=== PATIENT | female | born 1960 | race Caucasian/White ===

== ENCOUNTER 2021-01-16 14:33 | Outpatient (CLI) | payer BC | END 2021-01-16 14:34 | disposition home or self-care (01) | LOC: BICRAD 14:33 | PROVIDERS: ATTEND Radiology Radiation Oncology | DX: C79.51 Secondary malignant neoplasm of bone (principal); C34.11 Malignant neoplasm of upper lobe, right bronchus or lung ==

== ENCOUNTER 2021-01-18 08:28 | Day surgery (SDC) | payer BC ==
[2021-01-16 13:42] VITALS: BMI 23.1
[2021-01-18 08:54] LABS: Prothrombin Time 13.3 sec (12.0-14.7)
[2021-01-18 08:55] LABS: PTT 30.2 sec (22.9-36.1)
[2021-01-18 09:13] VITALS: BP 160/86; TEMP 98.4
[2021-01-18] MEDS ORDERED: Ondansetron PF 4 MG/2 ML Vial IVP PRN (14:25)
[2021-01-18] MEDS ORDERED: HYDROcodone/Acetaminophen 5/325 mg Tablet PO PRN ×2 (14:25)
[2021-01-18] MEDS ORDERED: Morphine 4 MG/ML VIAL SLOW IVP PRN (14:33)
[2021-01-18] MEDS ORDERED: Ketorolac Tromethamine 30 MG/ML VIAL IVP PRN (14:33)
== END 2021-01-18 14:45 | disposition short-term general hospital (02) ==
LOC: CT 08:28
PROVIDERS: ATTEND Internal Medicine Hematology & Oncology
PROC: 0BBC3ZX Excision of Right Upper Lung Lobe, Percutaneous Approach, Diagnostic (ICD-10-PCS; principal; 2021-01-18)
PROC: 0W9930Z Drainage of Right Pleural Cavity with Drainage Device, Percutaneous Approach (ICD-10-PCS; principal; 2021-01-18)
DX: J93.9 Pneumothorax, unspecified (principal); C34.11 Malignant neoplasm of upper lobe, right bronchus or lung; C79.51 Secondary malignant neoplasm of bone
CPT/HCPCS: 32408; 71045; 71250; 77002; 85610; 85730

== ENCOUNTER 2021-03-13 11:57 | Outpatient (CLI) | payer BC ==
[2021-03-13 12:47] LABS: Hemoglobin 7.3 g/dL (12.0-15.5); Mean Corpuscular Volume 63.1 fl (81.6-98.3); Mean Platelet Volume 9.9 fl (7.4-10.4); Platelet Count 215 10x3/uL (150-450); RBC Distribution Width 17.1 % (11.5-14.5); Red Blood Cell (RBC) Count 3.85 10x6/uL (3.90-5.03); White Blood Cell (WBC) Count 1.3 10x3/uL (3.5-10.5)
[2021-03-13 13:06] LABS: Anion Gap 15 mmol/L (10-20); BUN (Urea Nitrogen) 18 mg/dL (9.8-20.1); Calc. Creatinine Clearance 0 mL/min (70-130); Calcium 9.4 mg/dL (7.8-10.44); Carbon Dioxide 24 mmol/L (22-29); Chloride 104 mmol/L (98-107); Glucose 139 mg/dL (70-105); Potassium 3.7 mmol/L (3.5-5.1); Sodium 139 mmol/L (136-145)
[2021-03-13 13:18] LABS: MDiff Complete? YES; Manual Diff?? YES
[2021-03-13 13:25] LABS: Band 2 % (5-11); Eosinophils 2 % (0-10); Lymphocytes 37 % (21-51); Monocytes 16 % (0-10); Neutrophil 29 % (42-75); Nucleated RBC 2 % (0); Reactive Lymphocytes 12 % (0-10)
[2021-03-13 13:26] LABS: Platelet Morphology Comment Appears Adequate
[2021-03-13 13:28] LABS: Anisocytosis SLIGHT = 6-15 cells (100X) (0-5/hpf); Hypochromia SLIGHT = 6-15 cells (100X) (0-5/hpf); Macrocytosis SLIGHT = 6-15 cells (100X) (0-5/hpf); Microcytosis SLIGHT = 6-15 cells (100X) (0-5/hpf); Target Cells SLIGHT = 2-5 cells (100X) (0-1/hpf)
[2021-03-13 13:29] LABS: Elliptocytes SLIGHT = 2-5 cells (100X) (0-1/hpf); Schistocytes SLIGHT = 2-5 cells (100X) (0-1/hpf)
[2021-03-13 13:31] LABS: Tear Drops SLIGHT = 2-5 cells (100X) (0-1/hpf)
[2021-03-14 01:46] LABS: SARS-CoV-2 PCR by NAA Not Detected (NotDetected)
== END 2021-03-13 11:58 | disposition home or self-care (01) ==
LOC: LABBT 11:57
PROVIDERS: ATTEND Specialist
DX: Z01.818 Encounter for other preprocedural examination (principal); C34.11 Malignant neoplasm of upper lobe, right bronchus or lung; Z20.822 Contact with and (suspected) exposure to COVID-19
CPT/HCPCS: 80048; 85025; 93005; 93010; U0003; U0005

== ENCOUNTER 2021-03-18 10:29 | Day surgery (SDC) | payer BC ==
[2021-03-18] MEDS ORDERED: Ketorolac Tromethamine 30 MG/ML VIAL ONE ×2 (10:53→11:38)
[2021-03-18] MEDS ORDERED: Acetaminophen 500 MG TAB ONE (10:53)
[2021-03-18] MEDS ORDERED: PROPOFOL 0 ML ONE (11:04)
[2021-03-18] MEDS ORDERED: Lidocaine 1% w/Epinephrine 1:100K 20 ML VIAL ONE (11:48)
[2021-03-18] MEDS ORDERED: Bupivacaine 0.25% HCL 30 ML VIAL ONE (11:48)
[2021-03-18] MEDS ORDERED: EPINEPHrine 1 MG/ML AMP ONE (11:48)
[2021-03-18] MEDS ORDERED: Propofol 500 MG/50 ML VIAL ONE (12:14)
[2021-03-18] MEDS ORDERED: Midazolam HCl 2 mg/2 ml Vial ONE (12:47)
[2021-03-18] MEDS ORDERED: Lidocaine 1% PF 5 ML VIAL ONE (13:03)
[2021-03-18] MEDS ORDERED: Ondansetron PF 4 MG/2 ML Vial ONE (13:03)
== END 2021-03-18 14:30 | disposition home or self-care (01) ==
LOC: SDC 10:29
PROVIDERS: ATTEND Specialist
PROC: 02HV33Z Insertion of Infusion Device into Superior Vena Cava, Percutaneous Approach (ICD-10-PCS; principal; 2021-03-18)
DX: C34.11 Malignant neoplasm of upper lobe, right bronchus or lung (principal); C79.9 Secondary malignant neoplasm of unspecified site; Z90.710 Acquired absence of both cervix and uterus; Z98.890 Other specified postprocedural states; Z79.899 Other long term (current) drug therapy
CPT/HCPCS: 71045; C1788; J0171; J1642; J1885; J2250; J2405; J2704; S0020

== ENCOUNTER 2021-06-25 09:08 | Outpatient (CLI) | payer BC | END 2021-06-25 09:09 | disposition home or self-care (01) | LOC: PET 09:08 | PROVIDERS: ATTEND Internal Medicine Hematology & Oncology | DX: C34.11 Malignant neoplasm of upper lobe, right bronchus or lung (principal); C79.51 Secondary malignant neoplasm of bone | CPT/HCPCS: 78815; A9552 ==

== ENCOUNTER 2021-11-12 09:30 | Outpatient (CLI) | payer BC | END 2021-11-12 09:31 | disposition home or self-care (01) | LOC: PET 09:30 | PROVIDERS: ATTEND Internal Medicine Hematology & Oncology | DX: C34.11 Malignant neoplasm of upper lobe, right bronchus or lung (principal); C79.51 Secondary malignant neoplasm of bone | CPT/HCPCS: 78815; A9552 ==

== ENCOUNTER 2022-03-18 08:45 | Outpatient (CLI) | payer BC | END 2022-03-18 08:46 | disposition home or self-care (01) | LOC: PET 08:45 | PROVIDERS: ATTEND Internal Medicine Hematology & Oncology | DX: C34.11 Malignant neoplasm of upper lobe, right bronchus or lung (principal); C79.51 Secondary malignant neoplasm of bone | CPT/HCPCS: 78815; A9552 ==

== ENCOUNTER 2022-09-30 11:00 | Outpatient (CLI) | payer BC | END 2022-09-30 11:01 | disposition home or self-care (01) | LOC: PET 11:00 | PROVIDERS: ATTEND Internal Medicine Hematology & Oncology | DX: C34.11 Malignant neoplasm of upper lobe, right bronchus or lung (principal); C79.51 Secondary malignant neoplasm of bone | CPT/HCPCS: 78815; A9552 ==

== ENCOUNTER 2023-04-14 10:15 | Outpatient (CLI) | payer BC | END 2023-04-14 10:16 | LOC: PET 10:15 | PROVIDERS: ATTEND Internal Medicine Hematology & Oncology | DX: C34.11 Malignant neoplasm of upper lobe, right bronchus or lung (principal); C79.51 Secondary malignant neoplasm of bone | CPT/HCPCS: 78815; A9552 ==

== ENCOUNTER 2023-07-23 08:45 | Outpatient (CLI) | payer BC | END 2023-07-23 08:46 | LOC: PET 08:45 | PROVIDERS: ATTEND Internal Medicine Hematology & Oncology | DX: C34.11 Malignant neoplasm of upper lobe, right bronchus or lung (principal); C79.51 Secondary malignant neoplasm of bone; R91.8 Other nonspecific abnormal finding of lung field | CPT/HCPCS: 78815; A9552 ==

== ENCOUNTER 2023-07-23 10:32 | Outpatient (CLI) | payer BC | END 2023-07-23 10:33 | disposition home or self-care (01) | LOC: MRI 10:32 | PROVIDERS: ATTEND Internal Medicine Hematology & Oncology | DX: C79.51 Secondary malignant neoplasm of bone (principal); C34.11 Malignant neoplasm of upper lobe, right bronchus or lung | CPT/HCPCS: 70553 ==

== ENCOUNTER 2023-08-04 08:43 | Outpatient (CLI) | payer BC | END 2023-08-04 08:44 | disposition home or self-care (01) | LOC: BICMRI 08:43 | PROVIDERS: ATTEND Radiology Radiation Oncology | DX: C34.90 Malignant neoplasm of unspecified part of unspecified bronchus or lung (principal); C79.31 Secondary malignant neoplasm of brain; C79.32 Secondary malignant neoplasm of cerebral meninges; G96.198 Other disorders of meninges, not elsewhere classified; M84.48XA Pathological fracture, other site, initial encounter for fracture; M48.04 Spinal stenosis, thoracic region | CPT/HCPCS: 72156; 72157; 72158; 82565 ==

== ENCOUNTER 2023-08-08 13:08 | Inpatient (IN) | payer BC ==
[2023-08-08] MEDS ORDERED: LORazepam 2 MG/ML SYR.(CARPUJECT) ONE ×3 (13:19→17:41)
[2023-08-08 13:38] LABS: #Monocytes 0.7 thou/uL (0.11-0.59); #Neutrophils 4.5 thou/uL (1.40-6.50); %Basophils 0.2 % (0.0-1.0); %Lymphocytes 18.9 % (21.0-51.0); %Monocytes 10.7 % (0.0-10.0); %Neutrophils 69.9 % (42.0-75.0); Hemoglobin 7.4 g/dL (12.0-16.0); Mean Corpuscular HGB CONC 32.2 g/dL (32.0-36.0); Mean Corpuscular Hemoglobin 20.1 pg (27.0-31.0); Mean Corpuscular Volume 62.3 fl (78.0-98.0); Mean Platelet Volume 9.6 fL (7.4-10.4); Platelet Count 288 10x3/uL (130-400); RBC Distribution Width 15.4 % (11.5-14.5); Red Blood Cell (RBC) Count 3.69 mill/uL (4.20-5.40); White Blood Cell (WBC) Count 6.5 10x3/uL (4.8-10.8)
[2023-08-08 13:55] LABS: Acetaminophen Less than 10 mcg/mL (10.0-30.0); Alcohol Less than 10.0 mg/dL (Less than 10); Salicylate Less than 8.0 mg/dL (15.0-30.0)
[2023-08-08 13:57] LABS: ALT (SGPT) 11 U/L (8-55); AST (SGOT) 18 U/L (5-34); Albumin 4.7 g/dL (3.4-4.8); Alkaline Phosphatase 64 U/L (40-110); Anion Gap 17 mmol/L (10-20); BUN (Urea Nitrogen) 14 mg/dL (9.8-20.1); Bilirubin, Total 0.4 mg/dL (0.2-1.2); Calc. Creatinine Clearance 0 mL/min (70-130); Calcium 8.9 mg/dL (7.8-10.44); Carbon Dioxide 19 mmol/L (23-31); Chloride 103 mmol/L (98-107); Estimated GFR 93; Globulin 2.3 g/dL (2.4-3.5); Glucose 116 mg/dL (80-115); Potassium 4.2 mmol/L (3.5-5.1); Sodium 135 mmol/L (136-145)
[2023-08-08 13:59] LABS: Troponin I Less than 0.010 ng/mL (< 0.028)
[2023-08-08 14:04] LABS: Anisocytosis SLIGHT = 6-15 cells HPF (0-5); CellaVision Operator ID LAB.MJL; Hypochromia SLIGHT = 6-15 cells HPF (0-5); Microcytosis SLIGHT = 6-15 cells HPF (0-5); Ovalocytes SLIGHT = 2-5 cells HPF (0-1); Platelet Adequacy Comment Platelets Normal; Poikilocytosis SLIGHT = 6-15 cells HPF (0-5); Polychromasia SLIGHT = 2-3 cells HPF (0-2); Schistocytes SLIGHT = 2-5 cells HPF (0-1); Target Cells SLIGHT = 2-5 cells HPF (0-1); Tear Drops SLIGHT = 2-5 cells HPF (0-1)
[2023-08-08] MEDS ORDERED: Haloperidol Lactate 5 MG/ML VIAL ONE (14:21)
[2023-08-08] MEDS ORDERED: Dexamethasone 10 MG/ML VIAL ONE (14:29)
[2023-08-08 15:41] LABS: Bacteria/HPF None Seen HPF (None Seen); Bilirubin Negative (Negative); Blood, Urine Negative (Negative); CAUTI Indications for Culture Alt mental st,lethar; Clarity Clear (Clear); Glucose, Urine (Dipstick) Normal (Negative); Ketone, Urine 150 mg/dL (Negative); Leukocyte Negative Leu/uL (Negative); Nitrite Negative (Negative); Protein, Urine (Dipstick) 20 mg/dL (Neg-Trace); RBC/HPF 0-3 HPF (0-3); Specific Gravity, Urine 1.023 (1.002-1.036); Squamous Epithelial None Seen HPF (0-3); Urobilinogen Normal mg/dL (Less than 2); WBC/HPF 0-3 HPF (0-3); pH, Urine 5.5 (5.0-9.0)
[2023-08-08 15:42] LABS: Urine Culture Reflex No No
[2023-08-08 15:50] LABS: Amphetamine Not Detected (NotDetected); Barbiturates Screen Not Detected (NotDetected); Benzodiazepine Screen Detected (NotDetected); Cocaine Metabolite Screen Not Detected (NotDetected); Methadone Not Detected (NotDetected); Methamphetamine Not Detected (NotDetected); Opiate Screen Detected (NotDetected); Oxycodone Screen Not Detected (NotDetected); Phencyclidine (PCP) Not Detected (NotDetected); THC/Cannabinoid Screen Detected (NotDetected); Tricyclic Screen Not Detected (NotDetected)
[2023-08-08] MEDS ORDERED: Acetaminophen 325 MG TAB PO PRN (16:33)
[2023-08-08 17:45] LABS: Iron 12 ug/dL (50-170); Iron Binding Capacity, Total 245 mcg/dL (265-497)
[2023-08-08 18:20] VITALS: BMI 17.8
[2023-08-08] MEDS: Sodium Chloride 0.9% 1,000 ML IV SCH (18:31)
[2023-08-08] MEDS: Acetaminophen 650 MG Suppository PR PRN (18:54)
[2023-08-08] MEDS: Famotidine/PF 20 mg/2ml Vial SLOW IVP SCH (20:53)
[2023-08-08] MEDS: Cefepime 1 GM in Sodium Chloride 0.9% 100 ML IVPB SCH (21:00)
[2023-08-08] MEDS: Vancomycin 1 GM in Premix 1 BAG IVPB SCH (23:50)
[2023-08-09] MEDS: Ketorolac Tromethamine 30 MG (1 mL) VIAL IVP SCH (06:39)
[2023-08-09 08:07] LABS: #Monocytes 1.1 thou/uL (0.11-0.59); %Basophils 0.1 % (0.0-1.0); %Lymphocytes 16.2 % (21.0-51.0); %Monocytes 12.8 % (0.0-10.0); %Neutrophils 70.5 % (42.0-75.0); Hematocrit 23.4 % (36.0-47.0); Hemoglobin 7.5 g/dL (12.0-16.0); Mean Corpuscular HGB CONC 32.1 g/dL (32.0-36.0); Mean Corpuscular Hemoglobin 20.3 pg (27.0-31.0); Mean Corpuscular Volume 63.2 fl (78.0-98.0); Mean Platelet Volume 10.4 fL (7.4-10.4); Platelet Count 331 10x3/uL (130-400); RBC Distribution Width 15.9 % (11.5-14.5); White Blood Cell (WBC) Count 8.6 10x3/uL (4.8-10.8)
[2023-08-09] MEDS ORDERED: HYDROcodone/Acetaminophen 5/325 mg Tablet PO PRN (08:22)
[2023-08-09] MEDS: Haloperidol Lactate 5 MG/ML VIAL IM PRN (08:37)
[2023-08-09] MEDS: Memantine 10 MG TAB PO SCH (10:38)
[2023-08-09] MEDS: Enoxaparin 40 MG (0.4 mL) SYRINGE SC SCH (13:21)
[2023-08-09] MEDS: Dexamethasone 4 MG TAB PO SCH (13:21)
[2023-08-09] MEDS: Morphine 2 MG/ML VIAL SLOW IVP PRN (16:15)
[2023-08-09] MEDS: Dexamethasone 4 mg/ml Vial SLOW IVP SCH (18:19)
[2023-08-09] MEDS: levETIRAcetam 500 MG (5 mL) VIAL SLOW IVP SCH ×2 (18:54→21:49)
[2023-08-09] MEDS: Mirtazapine 15 MG TAB PO SCH (22:00)
[2023-08-09] MEDS: Vancomycin 1 GM in Premix 1 BAG IVPB SCH (23:20)
[2023-08-10 05:44] LABS: #Monocytes 0.3 thou/uL (0.11-0.59); #Neutrophils 5.1 thou/uL (1.40-6.50); %Basophils 0.2 % (0.0-1.0); %Lymphocytes 16.6 % (21.0-51.0); %Monocytes 4.9 % (0.0-10.0); Hematocrit 26.5 % (36.0-47.0); Hemoglobin 8.2 g/dL (12.0-16.0); Mean Corpuscular HGB CONC 30.9 g/dL (32.0-36.0); Mean Corpuscular Hemoglobin 19.6 pg (27.0-31.0); Mean Corpuscular Volume 63.2 fl (78.0-98.0); Mean Platelet Volume 9.8 fL (7.4-10.4); Platelet Count 373 10x3/uL (130-400); RBC Distribution Width 15.9 % (11.5-14.5); Red Blood Cell (RBC) Count 4.19 mill/uL (4.20-5.40); White Blood Cell (WBC) Count 6.6 10x3/uL (4.8-10.8)
[2023-08-10 06:39] LABS: Anion Gap 16 mmol/L (10-20); BUN (Urea Nitrogen) 13 mg/dL (9.8-20.1); Calc. Creatinine Clearance 63 mL/min (70-130); Calcium 9.1 mg/dL (7.8-10.44); Carbon Dioxide 19 mmol/L (23-31); Chloride 107 mmol/L (98-107); Estimated GFR 100; Glucose 140 mg/dL (80-115); Potassium 4.3 mmol/L (3.5-5.1); Sodium 138 mmol/L (136-145)
[2023-08-10] MEDS: Morphine 2 MG/ML VIAL SLOW IVP PRN (11:47)
[2023-08-10] MEDS: Acetaminophen 650 MG Suppository PR SCH (13:16)
[2023-08-10] MEDS ORDERED: Electrolyte Replacement Protocol 1 EACH FS SCH (15:00)
[2023-08-10] MEDS ORDERED: Magnevist 469MG/ML 20 ML VIAL ONE (16:21)
[2023-08-10] MEDS: Ampicillin/Sulbactam 3 GM in Sodium Chloride 0.9% 100 ML IVPB SCH (17:48)
[2023-08-10] MEDS: D5 1/2 NS w/20 mEq KCL 1,000 ML IV SCH (17:49)
[2023-08-10 18:50] LABS: Magnesium 2.5 mg/dL (1.6-2.6)
[2023-08-10 18:51] LABS: Magnesium 2.3 mg/dL (1.6-2.6); Phosphorus 2.5 mg/dL (2.3-4.7)
[2023-08-11 06:11] LABS: INR-International Normal Ratio 1.2; PTT 29.3 sec (22.9-36.1); Prothrombin Time 15.5 sec (12.0-14.7)
[2023-08-11 06:12] LABS: Anion Gap 17 mmol/L (10-20); BUN (Urea Nitrogen) 20 mg/dL (9.8-20.1); Calc. Creatinine Clearance 64 mL/min (70-130); Calcium 8.7 mg/dL (7.8-10.44); Carbon Dioxide 22 mmol/L (23-31); Chloride 105 mmol/L (98-107); Estimated GFR 101; Glucose 150 mg/dL (80-115); Phosphorus 2.2 mg/dL (2.3-4.7); Potassium 4.1 mmol/L (3.5-5.1); Sodium 140 mmol/L (136-145)
[2023-08-11] MEDS ORDERED: Enoxaparin 30 MG (0.3 mL) SYRINGE SC SCH (09:00)
[2023-08-11] MEDS ORDERED: Sodium Bicarbonate 2.5 MEQ/5 ML SDV ONE (09:11)
[2023-08-11] MEDS ORDERED: Lidocaine 1% PF 5 ML VIAL ONE (09:12)
[2023-08-11] MEDS: Lorazepam 2 MG/ML VIAL SLOW IVP PRN ×2 (09:14→19:07)
[2023-08-11] MEDS ORDERED: Thiamine HCl 500 MG in Sodium Chloride 0.9% 250 ML 250 ML IVPB SCH (12:00)
[2023-08-11 12:04] LABS: CSF, Glucose 80 mg/dl (40-70); CSF, Protein 63 mg/dL (15-40)
[2023-08-11 12:15] LABS: CSF Source CSF; Clarity Clear (Clear); Tube # 4
[2023-08-11 12:20] LABS: Cell Count Non Hematic 39 %; Lymphocytes 12 %
[2023-08-11 12:30] LABS: Color Of CSF Supernatant COLORLESS (Colorless); Tube # 2; Unspun CSF Color COLORLESS (Colorless)
[2023-08-11] MEDS: Thiamine HCl 500 MG, Admixture Fee 1 EACH in Sodium Chloride 0.9% 250 ML 250 ML IVPB SCH (12:54)
[2023-08-11 20:25] LABS: Segmented Neutrophils 49 %
[2023-08-12 07:25] LABS: Anion Gap 9 mmol/L (10-20); BUN (Urea Nitrogen) 12 mg/dL (9.8-20.1); Calc. Creatinine Clearance 99 mL/min (70-130); Carbon Dioxide 12 mmol/L (23-31); Chloride 123 mmol/L (98-107); Estimated GFR 112; Glucose 122 mg/dL (80-115); Potassium 2.8 mmol/L (3.5-5.1); Sodium 141 mmol/L (136-145)
[2023-08-12] MEDS: CALCIUM GLUC 1 GM/NS 50 ML 1 GM in Premix 1 BAG IVPB SCH (08:06)
[2023-08-12] MEDS: Potassium Chloride 20 MEQ in Premix 1 BAG IVPB SCH (08:06)
[2023-08-12] MEDS: Enoxaparin 30 MG (0.3 mL) SYRINGE SC SCH (09:00)
[2023-08-12 09:02] LABS: Anion Gap 14 mmol/L (10-20); BUN (Urea Nitrogen) 19 mg/dL (9.8-20.1); Calc. Creatinine Clearance 68 mL/min (70-130); Calcium 8.8 mg/dL (7.8-10.44); Carbon Dioxide 24 mmol/L (23-31); Chloride 100 mmol/L (98-107); Estimated GFR 102; Glucose 169 mg/dL (80-115); Magnesium 2.4 mg/dL (1.6-2.6); Phosphorus 2.1 mg/dL (2.3-4.7); Potassium 4.3 mmol/L (3.5-5.1); Sodium 134 mmol/L (136-145)
[2023-08-12] MEDS: Calcium Gluconate 4.6 MEQ in Sodium Chloride 0.9% 100 ML IVPB ONE (09:20)
[2023-08-12] MEDS ORDERED: D5 1/2 NS w/20 mEq KCL 1,000 ML IV SCH (10:00)
[2023-08-12] MEDS ORDERED: Lorazepam 2 MG/ML VIAL SLOW IVP PRN (10:24)
[2023-08-12] MEDS: Haloperidol Lactate 5 MG/ML VIAL IM PRN (10:47)
[2023-08-12] MEDS ORDERED: Calcium Carbonate 500 MG ChewTAB PO SCH (12:00)
[2023-08-12] MEDS: Morphine 2 MG/ML VIAL SLOW IVP PRN (12:58)
[2023-08-12] MEDS: Lorazepam 2 MG/ML VIAL SLOW IVP PRN (12:59)
[2023-08-12] MEDS ORDERED: ACYCLOVIR SODIUM IVPB SCH (14:00)
[2023-08-12] MEDS ORDERED: SODIUM CHLORIDE 0.9% IVPB SCH (14:00)
[2023-08-12 15:09] LABS: Anion Gap 14 mmol/L (10-20); BUN (Urea Nitrogen) 19 mg/dL (9.8-20.1); Calc. Creatinine Clearance 68 mL/min (70-130); Calcium 8.5 mg/dL (7.8-10.44); Carbon Dioxide 23 mmol/L (23-31); Chloride 103 mmol/L (98-107); Estimated GFR 102; Glucose 158 mg/dL (80-115); Magnesium 2.9 mg/dL (1.6-2.6); Phosphorus 2.2 mg/dL (2.3-4.7); Potassium 4.3 mmol/L (3.5-5.1); Sodium 136 mmol/L (136-145)
[2023-08-12] MEDS: FLU VACC QS2023-24(6MOS UP)/PF 60 MCG/0.5 ML SYRINGE IM ONE (18:37)
[2023-08-12] MEDS: Ondansetron PF 4 MG/2 ML Vial IVP PRN (23:39)
[2023-08-13] MEDS: Scopolamine 1 mg/72 hour Patch TOP SCH (13:51)
[2023-08-13 15:52] VITALS: BP 128/80; TEMP 98.6
[2023-08-14] MEDS ORDERED: Thiamine HCl 250 MG, Admixture Fee 1 EACH in Sodium Chloride 0.9% 100 ML IVPB SCH (06:00)
[2023-08-19] MEDS ORDERED: Thiamine HCl 200 MG/2 ML VIAL SLOW IVP SCH (06:00)
== END 2023-08-13 16:11 | disposition hospice, inpatient (51) | DRG 70 ==
LOC: ERS 13:08 → 2NO 16:14 → MSONC 08-11 16:22
PROVIDERS: ADMIT Family Medicine; ATTEND Family Medicine
PROC: 0T9B70Z Drainage of Bladder with Drainage Device, Via Natural or Artificial Opening (ICD-10-PCS; principal; 2023-08-08)
PROC: 4A00X4Z Measurement of Central Nervous Electrical Activity, External Approach (ICD-10-PCS; 2023-08-10)
PROC: 009U3ZX Drainage of Spinal Canal, Percutaneous Approach, Diagnostic (ICD-10-PCS; 2023-08-11)
PROC: B01B1ZZ Fluoroscopy of Spinal Cord using Low Osmolar Contrast (ICD-10-PCS; 2023-08-11)
DX: G93.41 Metabolic encephalopathy (principal); E43 Unspecified severe protein-calorie malnutrition; C34.90 Malignant neoplasm of unspecified part of unspecified bronchus or lung; C79.49 Secondary malignant neoplasm of other parts of nervous system; Z79.899 Other long term (current) drug therapy; D63.0 Anemia in neoplastic disease; Z98.890 Other specified postprocedural states; I10 Essential (primary) hypertension; R33.9 Retention of urine, unspecified; Z51.5 Encounter for palliative care; Z66 Do not resuscitate
CPT/HCPCS: 36415; 36416; 51701; 62270; 70450; 70553; 71045; 71260; 74177; 80048; 80053; 80306; 80307; 81001; 82040; 82140; 82728; 82945; 83540; 83550; 83605; 83735; 83970; 84100; 84157; 84443; 84484; 85025; 85060; 85610; 85730; 87040; 87070; 87086; 87205; 87529; 87798; 87899; 88112; 89051; 95711; 95819; 96372; 96374; 96375; 96376; A9579; J0133; J0295; J0613; J0692; J1100; J1630; J1650; J1790; J1885; J1953; J2060; J2272; J2405; J3370-JW; J3411; J3480; J3490; J7050; S0028

== ENCOUNTER 2023-08-13 16:51 | Inpatient (IN) | payer OTHER, BC ==
[2023-08-13] MEDS ORDERED: GLYCOPYRROLATE/PF 0.2 MG/ML VIAL SLOW IVP PRN (16:58)
[2023-08-13] MEDS ORDERED: Bisacodyl 10 MG SUPP PR PRN (16:59)
[2023-08-13] MEDS ORDERED: Scopolamine 1 mg/72 hour Patch TOP PRN (17:00)
[2023-08-13] MEDS ORDERED: Ondansetron PF 4 MG/2 ML Vial IVP PRN (17:00)
[2023-08-13] MEDS ORDERED: Acetaminophen 650 MG Suppository PR PRN (17:00)
[2023-08-13] MEDS: Scopolamine 1 mg/72 hour Patch TOP SCH (17:03)
[2023-08-13] MEDS: Lorazepam 2 MG/ML VIAL SLOW IVP PRN (17:24)
[2023-08-13] MEDS: Morphine 4 MG/ML VIAL SLOW IVP PRN (17:24)
[2023-08-19] MEDS: Haloperidol Lactate 5 MG/ML VIAL SLOW IVP PRN (12:31)
[2023-08-19] MEDS: Morphine 4 MG/ML VIAL SLOW IVP SCH (17:33)
[2023-08-19 23:58] VITALS: BP 96/60; TEMP 98.8
== END 2023-08-20 03:07 | disposition expired | DRG 951 ==
LOC: MSONC 16:51
PROVIDERS: ADMIT Family Medicine; ATTEND Family Medicine
DX: Z51.5 Encounter for palliative care (principal); C34.90 Malignant neoplasm of unspecified part of unspecified bronchus or lung; C79.51 Secondary malignant neoplasm of bone; C79.31 Secondary malignant neoplasm of brain; G93.40 Encephalopathy, unspecified; D64.9 Anemia, unspecified; Z79.899 Other long term (current) drug therapy; Z98.890 Other specified postprocedural states; I95.9 Hypotension, unspecified; R09.02 Hypoxemia
CPT/HCPCS: J1630; J2060; J2270